=== PATIENT | female | born 1985 | race Caucasian/White ===

== ENCOUNTER 2018-05-29 21:48 | Emergency (ER) | payer OTHER, BC ==
[~2018-05-29] VITALS: Ht 157.5 cm; Wt 99.8 kg
[2018-05-29] MEDS ORDERED: BIRTH CONTROL (22:01)
== END 2018-05-29 22:15 | disposition home or self-care (01) ==
LOC: ER 21:48
DX: S09.90XA Unspecified injury of head, initial encounter (principal); W22.8XXA Striking against or struck by other objects, initial encounter
CPT/HCPCS: 99283

== ENCOUNTER 2018-06-01 10:08 | Emergency (ER) | payer OTHER, BC ==
[~2018-06-01] VITALS: Ht 157.5 cm; Wt 90.7 kg
[~2018-06-01 10:08] MED LIST: BIRTH CONTROL
== END 2018-06-01 11:58 | disposition home or self-care (01) ==
LOC: ER 10:08
DX: S06.0X0A Concussion without loss of consciousness, initial encounter (principal); W01.198A Fall on same level from slipping, tripping and stumbling with subsequent striking against other object, initial encounter; Y99.0 Civilian activity done for income or pay
CPT/HCPCS: 99282

== ENCOUNTER → 2023-03-24 | Outpatient (CLI) | payer OTHER ==
[2023-03-25 16:09] LABS: HPV 16 Negative (Negative); HPV 18 Negative (Negative); HPV OTHER HR TYPES Negative (Negative)
== END ==
LOC: LAB 14:56 → LAB SHORT 14:56
PROVIDERS: Family Medicine
DX: Z01.419 Encounter for gynecological examination (general) (routine) without abnormal findings (principal)
CPT/HCPCS: 87624; G0145